=== PATIENT | female | born 1970 | race Caucasian/White ===

== ENCOUNTER 2024-06-03 12:30 | Emergency (ER) | payer SELFPAY ==
[~2024-06-03] VITALS: Ht 167.6 cm; Wt 71.7 kg
[2024-06-03 12:40] VITALS: BP 114/84; TEMP 98.3
[2024-06-03 13:36] VITALS: O2SAT 98
== END 2024-06-03 13:36 | disposition home or self-care (01) ==
LOC: ER 12:44
DX: M79.604 Pain in right leg (principal); M79.605 Pain in left leg; R06.02 Shortness of breath; R07.9 Chest pain, unspecified